=== PATIENT | male | born 1975 | race Two or more races ===

== ENCOUNTER 2025-02-01 19:49 | Emergency (ER) | payer MEDICAID, OTHER ==
[~2025-02-01] VITALS: Ht 175.3 cm; Wt 110.0 kg
[~2025-02-01 19:49] MED LIST: ASPI-325 PO; ATOR40TA52 PO; CARV3.1240 PO; IRBE150T49 PO; METF-869 PO; NIFE1TAB30 PO
--- NOTE | 2025-02-01 20:07 | ED.PDOC ---
History of Present Illness HPI Comments 49-year-old male came to ER for eye problems. Patient has been having redness and irritation of the right eye for 2 days, Was given eye drops but offered no relief. Upon arrival at the ER, blood pressure was 207/142 mmHg. Patient has been off his medications, nifedipine for over week. Denies any headaches, dizziness chest pains. Chief Complaint: Eye problems Time Seen by MD: 20:07 Reviewed Notes: Nurses Notes Allergies: Coded Allergies: No Known Drug Allergy (Verified Allergy, Unknown, 02/01/25) Information Source: Patient Mode of Arrival: Ambulatory Past Medical History PAST MEDICAL HISTORY: High Lipids, HTN Surgical History: PTCA Family History Family History: Reviewed,noncontributory to illness Social History Smoker: Cigarettes Alcohol: Denies ETOH Use Drugs: Denies Drug Use Lives In: Home Constitutional: denies: chills, diaphoresis, fatigue, fever, malaise, sweats, weakness, others EENTM: reports: eye redness (right); denies: blurred vision, double vision, ear bleeding, ear discharge, ear drainage, ear pain, ear ringing, eye pain, hearing loss, mouth pain, mouth swelling, nasal discharge, nose bleeding, nose congestion, nose pain, photophobia, tearing, throat pain, throat swelling, voice changes, others Respiratory: denies: cough, hemoptysis, orthopnea, SOB at rest, shortness of breath, SOB with excertion, stridor, wheezing, others Cardiovascular: denies: chest pain, dizzy spells, diaphoresis, Dyspnea on exertion, edema, irregular heart beat, left arm pain, lightheadedness, palpitations, PND, syncope, others Gastrointestinal: denies: abdomen distended, abdominal pain, blood streaked bowels, constipated, diarrhea, dysphagia, difficulty swallowing, hematemesis, melena, nausea, poor appetite, poor fluid intake, rectal bleeding, rectal pain, vomiting, others Genitourinary: denies: burning, dysuria, flank pain, frequency, hematuria, incontinence, penile discharge, penile sore, pain, testicle pain, testicle swelling, urgency, others Neurological: denies: dizziness, fainting, headache, left sided numbness, left sided weakness, numbness, paresthesia, pre-existing deficit, right sided numbness, right sided weakness, seizure, speech problems, tingling, tremors, weakness, others Musculoskeletal: denies: back pain, gout, joint pain, joint swelling, muscle pain, muscle stiffness, neck pain, others Integumetry: denies: bruises, change in color, change in hair/nails, dryness, laceration, lesions, lumps, rash, wounds, others Allergic/Immunocompromised: denies: Difficulty Healing, Frequent Infections, Hives, Itching, others Hematologic/Lymphatic: denies: anemia, blood clots, easy bleeding, easy bruising, swollen glands, others Endocrine: denies: excessive hunger, excessive sweating, excessive thirst, excessive urination, flushing, intolerance to cold, intolerance to heat, unexplained weight gain, unexplained weight loss, others Psychiatric: denies: anxiety, bipolar disorder, depression, hopeless, panic disorder, schizophrenia, sleepless, suicidal, others Physical Exam General Appearance: No Apparent Distress, Normal HEENT: Cornea (R) (+ pterygium, no discharge noted), Pharynx Normal, TMs Normal Neck: Full Range of Motion, Non-Tender, Normal, Normal Inspection Respiratory: Chest Non-Tender, Lungs Clear, No Accessory Muscle Use, No Resp iratory Distress, Normal Breath Sounds Cardiovascular: No Edema, No JVD, No Murmur, No Gallop, Normal Peripheral Pulses, Regular Rate/Rhythm Breast Exam: Deferred Gastrointestinal: No Organomegaly, Non Tender, No Pulsatile Mass, Normal Bowel Sounds, Soft Genitalia: Deferred Pelvic: Deferred Rectal: Deferred Extremities: No calf tenderness, Normal capillary refill, Normal inspection, Normal range of motion, Non-tender, No pedal edema Musculoskeletal : Apperance: Normal Neurologic: Alert, 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 Was a procedure done?: No Differential Dx Considerations may include: Conjunctivitis, foreign body, pterygium, hypertensive urgency, medication noncompliance X-Ray, Labs, Meds, VS Vital Signs Date Time Temp Pulse Resp B/P (MAP) Pulse Ox O2 Delivery O2 Flow Rate FiO2 02/02/25 00:32 98.4 78 20 195/144 (161) 97 98.4 02/02/25 00:32 195/144 02/01/25 23:17 98.1 87 17 210/128 (155) 98 98.1 02/01/25 23:17 210/128 02/01/25 20:09 97.7 100 18 207/142 95 97.7 Current Medications Medications (Trade) Dose Ordered Sig/Jesus Route Start Time Stop Time Status Last Admin Clonidine HCl (Catapres Tablet) 0.1 mg ONCE ONCE PO 02/01/25 20:00 02/01/25 20:01 DC 02/01/25 23:17 Time of 1ST Reevaluation: 20:02 Reevaluation 1ST: Unchanged Patient Education/Counseling: Diagnosis, Treatment Family Education/Counseling: No Family Present Comments This is a patient presents with a inflamed pterygium on the left eye. However incidentally he is also found to be hypertensive. Patient admitted that he is noncompliant with his medications and has not gotten two of them filled. In the process of treating his blood pressure patient eloped. SEPSIS Sepsis Screen Vital Signs Date Time Temp Pulse Resp B/P (MAP) Pulse Ox O2 Delivery O2 Flow Rate FiO2 02/02/25 00:32 98.4 78 20 195/144 (161) 97 98.4 02/02/25 00:32 195/144 02/01/25 23:17 98.1 87 17 210/128 (155) 98 98.1 02/01/25 23:17 210/128 02/01/25 20:09 97.7 100 18 207/142 95 97.7 Medications Medications Dose Ordered Sig/Jesus Route Start Time Stop Time Status Last Admin Dose Admin Clonidine HCl 0.1 mg ONCE ONCE PO 02/01/25 20:00 02/01/25 20:01 DC 02/01/25 23:17 Departure 1 Departure Time of Disposition: 03:13 Impression: Primary Impression: Pterygium Qualified Codes: H11.002 - Unspecified pterygium of left eye Additional Impressions: Uncontrolled hypertension Noncompliance Disposition: 07 LEFT AWOL/ELOPED Condition: Other (unknown) Critical Care Note Critical Care Time?: No Stability Stability form required: No Heart Score Heart Score: Heart Score Response (Comments) Value History N/A 0 EKG N/A 0 Age N/A 0 Risk Factors N/A 0 Troponin N/A 0 Total 0 I personally scribed for DIPTI GOMEZ MD ([email or web address]) on 02/01/25 at 20:07. Electronically submitted by Isaak Taylor ([facility]). DIPTI GOMEZ MD Feb 01, 2025 20:07
[2025-02-02 00:32] VITALS: BP 195/144; PULSE 78; RESP 20; TEMP 98.4; O2SAT 97
== END 2025-02-02 01:04 | disposition left against medical advice (07) ==
LOC: ER 19:49
DX: H11.001 Unspecified pterygium of right eye (principal); I10 Essential (primary) hypertension; F17.210 Nicotine dependence, cigarettes, uncomplicated; Z91.199 Patient's noncompliance with other medical treatment and regimen due to unspecified reason

== ENCOUNTER 2025-02-03 13:08 | Inpatient (IN) | payer MEDICAID ==
[~2025-02-03] VITALS: Ht 175.3 cm; Wt 109.0 kg
[2025-02-03] MEDS: hydrALAZINE HCL 20 MG/ML VL IV ONE (14:17)
--- NOTE | 2025-02-03 14:33 | DVH ---
EXAM: XY CHEST PORTABLE HISTORY: htn TECHNIQUE: 1 view of the chest COMPARISON: None FINDINGS/IMPRESSION: LUNGS: No pleural effusion, consolidation, or pneumothorax. MEDIASTINUM: Unremarkable. BONES: No acute osseous abnormality. OTHER: None.
--- NOTE | 2025-02-03 14:43 | DVH ---
CLINICAL INFORMATION: Hypertension. TECHNIQUE: Axial imaging was obtained through the brain without contrast. Coronal and sagittal reformatted images were obtained, reviewed, and stored. Images were reviewed in brain and bone windows. All CT scans at this medical facility are performed using dose modulation techniques as appropriate to a performed exam including the following: Automated exposure control was utilized; adjustment of the MA and/or KV according to patient size; and use of iterative reconstruction technique. CTDIvol = 62.82 mGy DLP = 1237.85 mGy-cm COMPARISON: None FINDINGS: There is no acute intracranial hemorrhage. No mass effect or midline shift. The ventricles and sulci are within normal limits in size for age. Basal cisterns are patent. Scattered areas of hypoattenuation are seen in the periventricular and subcortical white matter, which are nonspecific but most likely sequelae of small vessel ischemic disease. The calvarium is unremarkable. Retention cysts versus polyps in the maxillary sinuses. There are numerous small scalp calcifications. IMPRESSION: 1. No acute intracranial abnormality. 2. Nonacute findings as described above.
[2025-02-03 14:57] LABS: Hemoglobin 14.7 g/dL (13.5-17.5); Nucleated Red Blood Cells % 0.1 %
[2025-02-03 14:59] LABS: Hematocrit 43.9 % (41.0-53.0); Mean Corpuscular Hemoglobin 26.7 pg (28.0-32.0); Mean Corpuscular Volume 79.5 fL (80.0-100.0)
[2025-02-03 15:05] LABS: Chloride 104 mmol/L (98-107); Potassium 4.1 mmol/L (3.5-5.1); Sodium 140 mmol/L (136-145)
[2025-02-03 15:06] LABS: Anion Gap 9 (5-15); Calcium 9.5 mg/dL (8.7-10.4); Carbon Dioxide 27 mmol/L (20-31)
[2025-02-03 15:11] LABS: BUN/Creatinine Ratio 19.5 (10.0-20.0); Blood Urea Nitrogen 15 mg/dL (9-23); Glucose 141 mg/dL (74-106)
[2025-02-03 15:13] LABS: Urine Protein, UAD TRACE (Negative)
[2025-02-03] MEDS: FLUORESCEIN SOD OPTH TEST STRIP EACHEYE ONE (15:25)
[2025-02-03] MEDS: TETRACAINE HCL 0.5% OPTH(EYE) SOLN 4ML EACHEYE ONE (15:25)
--- NOTE | 2025-02-03 15:26 | ED.PDOC ---
History of Present Illness HPI Comments 49 y/o M, presents to the ED for CC of eye-problem. Patient states, he might have accidently gotten dust into his right eye x1weel ago. Patient has notable redness to the right cornea. Patient further relays to, have been seen at Urgent Care for SS and being relayed to the ED d/t high blood pressure; patient comments on being without blood pressure medication x1week. Patient denies headache, vision loss, dizziness, nausea, or vomiting. No other symptoms or modifying factors are present at this time. Chief Complaint: Eye Problem Time Seen by MD: 15:15 Reviewed Notes: Nurses Notes, Medications, Allergies Allergies: Coded Allergies: No Known Drug Allergy (Verified Allergy, Unknown, 02/01/25) Information Source: Patient Mode of Arrival: Ambulatory Severity: Moderate Timing: Weeks Duration: Since onset Prehospital treatment: None Medication Refill: Ran out of Medication Past Medical History PAST MEDICAL HISTORY: High Lipids, HTN Surgical History: PTCA Family History Family History: Reviewed,noncontributory to illness Social History Smoker: Cigarettes Alcohol: Denies ETOH Use Drugs: Denies Drug Use Lives In: Home Constitutional: denies: chills, diaphoresis, fatigue, fever, malaise, sweats, weakness, others EENTM: denies: blurred vision, double vision, ear bleeding, ear discharge, ear drainage, ear pain, ear ringing, eye pain, eye redness, hearing loss, mouth pain, mouth swelling, nasal discharge, nose bleeding, nose congestion, nose pain, photophobia, tearing, throat pain, throat swelling, voice changes, others Respiratory: denies: cough, hemoptysis, orthopnea, SOB at rest, shortness of breath, SOB with excertion, stridor, wheezing, others Cardiovascular: denies: chest pain, dizzy spells, diaphoresis, Dyspnea on exertion, edema, irregular heart beat, left arm pain, lightheadedness, palpitations, PND, syncope, others Gastrointestinal: denies: abdomen distended, abdominal pain, blood streaked bowels, constipated, diarrhea, dysphagia, difficulty swallowing, hematemesis, melena, nausea, poor appetite, poor fluid intake, rectal bleeding, rectal pain, vomiting, others Genitourinary: denies: burning, dysuria, flank pain, frequency, hematuria, incontinence, penile discharge, penile sore, pain, testicle pain, testicle swelling, urgency, others Neurological: denies: dizziness, fainting, headache, left sided numbness, left sided weakness, numbness, paresthesia, pre-existing deficit, right sided numbness, right sided weakness, seizure, speech problems, tingling, tremors, weakness, others Musculoskeletal: denies: back pain, gout, joint pain, joint swelling, muscle pain, muscle stiffness, neck pain, others Integumetry: denies: bruises, change in color, change in hair/nails, dryness, laceration, lesions, lumps, rash, wounds, others Allergic/Immunocompromised: denies: Difficulty Healing, Frequent Infections, Hives, Itching, others Hematologic/Lymphatic: denies: anemia, blood clots, easy bleeding, easy bruising, swollen glands, others Endocrine: denies: excessive hunger, excessive sweating, excessive thirst, excessive urination, flushing, intolerance to cold, intolerance to heat, unexplained weight gain, unexplained weight loss, others Psychiatric: denies: anxiety, bipolar disorder, depression, hopeless, panic disorder, schizophrenia, sleepless, suicidal, others All Other Systems: Reviewed and Negative Physical Exam General Appearance: No Apparent Distress, Normal HEENT: Normal ENT Inspection, Pharynx Normal, Other (right eye redness) Neck: Full Range of Motion, Non-Tender, Normal, Normal Inspection Respiratory: Chest Non-Tender, Lungs Clear, No Accessory Muscle Use, No Respiratory Distress, Normal Breath Sounds Cardiovascular: No Edema, No Murmur, No Gallop, Normal Peripheral Pulses, Regular Rate/Rhythm Breast Exam: Deferred Gastrointestinal: No Organomegaly, Non Tender, No Pulsatile Mass, Normal Bowel Sounds, Soft Genitalia: Deferred Pelvic: Deferred Rectal: Deferred Extremities: No calf tenderness, Normal capillary refill, Normal inspection, Normal range of motion, Non-tender, No pedal edema Musculoskeletal : Apperance: Normal Neurologic: Alert, order entry technician II-XII nml as Tested, No Motor Deficits, Normal Affect, Normal Mood, No Sensory Deficits Cerebellar Function: Normal Reflexes: Normal Skin: Dry, Normal Color, Warm Lymphatic: No Adenopathy Was a procedure done? Was a procedure done?: No Differential Dx Considerations may include: hypertensive urgency, hypertensive crisis, corneal abrasion, conjunctivitis X-Ray, Labs, Meds, VS Vital Signs Date Time Temp Pulse Resp B/P (MAP) Pulse Ox O2 Delivery O2 Flow Rate FiO2 02/03/25 15:23 98.2 102 18 183/106 (131) 100 98.2 02/03/25 15:23 103 18 100 Room Air 02/03/25 14:17 205/140 02/03/25 13:51 98.2 83 18 205/140 (161) 97 98.2 202/150 (167) 02/03/25 13:51 98.2 8 18 205/140 (161) 97 98.2 02/03/25 13:14 224/133 (163) 02/03/25 13:13 98.1 92 15 231/129 (163) 98 98.1 02/03/25 13:10 98.1 92 15 123/129 98 98.1 Lab Test 02/03/25 15:35 02/03/25 14:43 02/03/25 14:06 Range/Units Troponin I High Sensitivity Pending 644 *H </=54 ng/L White Blood Count 8.4 4.4-10.8 10^3/uL Red Blood Count 5.52 4.5-5.90 10^6/uL Hemoglobin 14.7 13.5-17.5 g/dL Hematocrit 43.9 41.0-53.0 % Mean Corpuscular Volume 79.5 L 80.0-100.0 fL Mean Corpuscular Hemoglobin 26.7 L 28.0-32.0 pg Mean Corpuscular Hemoglobin Concent 33.6 32.0-36.0 g/dL Red Cell Distribution Width 15.6 H 11.8-14.3 % Platelet Count 218 140-450 10^3/uL Mean Platelet Volume 9.1 6.9-10.8 fL Neutrophils (%) (Auto) 59.0 37.0-80.0 % Lymphocytes (%) (Auto) 26.1 10.0-50.0 % Monocytes (%) (Auto) 9.3 0.0-12.0 % Eosinophils (%) (Auto) 5.2 0.0-7.0 % Basophils (%) (Auto) 0.4 0.0-2.0 % Neutrophils # (Auto) 5.0 1.6-8.6 10 ^3/uL Lymphocytes # (Auto) 2.2 0.4-5.4 10 ^3/uL Monocytes # (Auto) 0.8 0-1.3 10 ^3/uL Eosinophils # (Auto) 0.4 0-0.8 10 ^3/uL Basophils # (Auto) 0 0-0.2 10 ^3/uL Nucleated Red Blood Cells 0.1 % Sodium Level 140 136-145 mmol/L Potassium Level 4.1 3.5-5.1 mmol/L Chloride Level 104 98-107 mmol/L Carbon Dioxide Level 27 20-31 mmol/L Anion Gap 9 5-15 Blood Urea Nitrogen 15 9-23 mg/dL Creatinine 0.77 0.700-1.30 mg/dL Glomerular Filtration Rate Calc 111 >90 mL/min BUN/Creatinine Ratio 19.5 10.0-20.0 Serum Glucose 141 H 74-106 mg/dL Calcium Level 9.5 8.7-10.4 mg/dL B-Type Natriuretic Peptide 95.37 0-100 pg/mL Urine Color Light-orange Yellow Urine Clarity Clear Clear Urine pH 6.0 5.0-9.0 Urine Specific Effie 1.028 1.001-1.035 Urine Protein Trace H Negative Urine Ketones Negative Negative Urine Blood Negative Negative /uL Urine Nitrite Negative Negative Urine Bilirubin Negative Negative Urine Urobilinogen Normal Negative mg/dL Urine Leukocyte Esterase Negative Negative /uL Urine RBC 1 0 - 3 /hpf Urine Microscopic WBC < 1 0-3 /HPF Urine Squamous Epithelial Cells Few <5 /hpf Urine Bacteria None seen None Seen /hpf Urine Glucose Trace Normal mg/dL Current Medications Medications (Trade) Dose Ordered Sig/Jesus Route Start Time Stop Time Status Last Admin Hydralazine HCl (Apresoline Injection) 20 mg ONCE ONCE IV 02/03/25 14:00 02/03/25 14:05 DC 02/03/25 14:[address] [address] Ph: [phone] DIAGNOSTIC IMAGING Diagnostic Imaging Report : [id number] Signed PATIENT: MICHAELA QUEEN ACCT: [id number] UNIT: [id number] : 1975 LOC: ER ROOM / BED: / AGE / SEX: 49 / M ADM STATUS: REG ER SERVICE 1400 ORDERING PHYSICIAN: FOZIA WEST MD PROCEDURE(s): CXRP - CHEST PORTABLE REASON: htn ORDER NUMBER(s): [id number], ACCESSION NUMBER(s): [id number] EXAM: XY CHEST PORTABLE HISTORY: htn TECHNIQUE: 1 view of the chest COMPARISON: None FINDINGS/IMPRESSION: LUNGS: No pleural effusion, consolidation, or pneumothorax. MEDIASTINUM: Unremarkable. BONES: No acute osseous abnormality. OTHER: None. ATED BY: TRINIDAD OG MD DICTATED DATE/TIME: 02/03/251429 SIGNED BY: TRINIDAD OG MD SIGNED DATE/TIME: 02/03/251429 CC: [place] [id number] Ph: [phone] DIAGNOSTIC IMAGING Diagnostic Imaging Report : [id number] Signed PATIENT: MICHAELA QUEEN ACCT: [id number] UNIT: [id number] : 1975 LOC: ER ROOM / BED: / AGE / SEX: 49 / M ADM STATUS: REG ER SERVICE 1400 ORDERING PHYSICIAN: FOZIA WEST MD PROCEDURE(s): HWOCT - HEAD WITHOUT CONTRAST REASON: htn ORDER NUMBER(s): [id number], ACCESSION NUMBER(s): [id number] CLINICAL INFORMATION: Hypertension. TECHNIQUE: Axial imaging was obtained through the brain without contrast. Coronal and sagittal reformatted images were obtained, reviewed, and stored. Images were reviewed in brain and bone windows. All CT scans at this medical facility are performed using dose modulation techniques as appropriate to a performed exam including the following: Automated exposure control was utilized; adjustment of the MA and/or KV according to patient size; and use of iterative reconstruction technique. CTDIvol = 62.82 mGy DLP = 1237.85 mGy-cm COMPARISON: None FINDINGS: There is no acute intracranial hemorrhage. No mass effect or midline shift. The ventricles and sulci are within normal limits in size for age. Basal cisterns are patent. Scattered areas of hypoattenuation are seen in the periventricular and subcortical white matter, which are nonspecific but most likely sequelae of small vessel ischemic disease. The calvarium is unremarkable. Retention cysts versus polyps in the maxillary sinuses. There are numerous small scalp calcifications. IMPRESSION: 1. No acute intracranial abnormality. 2. Nonacute findings as described above. ATED BY: JOZEF SEWELL DO DICTATED DATE/TIME: 02/03/251440 SIGNED BY: JOZEF SEWELL DO SIGNED DATE/TIME: 02/03/251440 CC: Time of 1ST Reevaluation: 15:45 Reevaluation 1ST: Unchanged Patient Education/Counseling: Diagnosis, Treatment Family Education/Counseling: No Family Present SEPSIS Sepsis Screen Date sepsis recognized/suspect: Feb 03, 2025 Time Sepsis recognized/suspect: 135 Recent Procedure: No On Antibiotic Therapy: No Respiratory Rate >20: No Heart Rate >90: No Temp<36 C (96.8 F) or >38.3 C: No SBP <90 or MAP <65 mmHG: No New Acute Mental Status Change: No Is the patient on CPAP, BIPAP,: No Physician Orders Chest Portable (02/03/25 14:00) Head Without Contrast (02/03/25 14:00) Electrocardigram (02/03/25 14:00) Troponin-I Hs (02/03/25 15:00) Troponin-I Hs (02/03/25 17:00) Electrocardigram (02/03/25 15:00) Electrocardigram (02/03/25 17:00) Erythromy Opth Oint 5mg/Gm 1gm (02/03/25 16:00) Labetalol Hcl (Labetalol Hcl) (02/03/25 16:00) Vital Signs Date Time Temp Pulse Resp B/P (MAP) Pulse Ox O2 Delivery O2 Flow Rate FiO2 02/03/25 15:23 98.2 102 18 183/106 (131) 100 98.2 02/03/25 15:23 103 18 100 Room Air 02/03/25 14:17 205/140 02/03/25 13:51 98.2 83 18 205/140 (161) 97 98.2 202/150 (167) 02/03/25 13:51 98.2 8 18 205/140 (161) 97 98.2 02/03/25 13:14 224/133 (163) 02/03/25 13:13 98.1 92 15 231/129 (163) 98 98.1 02/03/25 13:10 98.1 92 15 123/129 98 98.1 Laboratory Tests Test 02/03/25 14:43 White Blood Count 8.4 10^3/uL (4.4-10.8) Medications Medications Dose Ordered Sig/Jesus Route Start Time Stop Time Status Last Admin Dose Admin Hydralazine HCl 20 mg ONCE ONCE IV 02/03/25 14:00 02/03/25 14:05 DC 02/03/25 14:17 Departure 1 Departure Time of Disposition: 15:57 (Patient with a corneal abrasion of the right eye. Patient had some debris that I cleaned out. We will give the patient erythromycin ointment.Patient presented with hypertension and symptoms concerning for hypertensive emergency. Patient is receiving iv blood pressure medications requiring intensive monitoring. Data: 1. I ordered and reviewed the result of at least 3 labs including a CBC, BMP, and Urinalysis. 2. I independently interpreted the following tests: CT Brain: Which appears benign. EKG which is Normal Sinus RhythmRisk:This patient has a high risk of morbidity due to further diagnostic testing or treatment and may suffer from an acute c ardiac disorder. Workup reveals hypertensive emergency and patient should be admitted for further workup. and possible expert consultation. ) Impression: Primary Impression: Hypertensive emergency Additional Impression: Corneal abrasion Disposition: ADMITTED INPATIENT Admit to: Tele Condition: Guarded Critical Care Note Critical Care Time?: Yes Critical care comment: Hypertensive emergency Authorized and Performed by: Fozia West MD Total critical care time: Approximately 38 minutes Due to a high probability of clinically significant, life threatening deterioration, the patient required my highest level of preparedness to intervene emergently and I personally spent this critical care time directly and personally managing the patient. This critical care time included obtaining a history; examining the patient; pulse oximetry; ordering and review of studies; arranging urgent treatment with development of a management plan; evaluation of patient's response to treatment; frequent reassessment; and, discussions with other providers. This critical care time was performed to assess and manage the high probability of imminent, life-threatening deterioration that could result in multi-organ failure. It was exclusive of separately billable procedures and treating other patients and teaching time. Please see my other sections and the rest of the note for further information on patient assessment and treatment. Stability Stability form required: No Heart Score Heart Score: Heart Score Response (Comments) Value History N/A 0 EKG N/A 0 Age N/A 0 Risk Factors N/A 0 Troponin N/A 0 Total 0 I personally scribed for FOZIA WEST MD ([email or web address]) on 02/03/25 at 15:26. Electronically submitted by Suki Rouse ([email or web address]). I personally scribed for FOZIA WEST MD ([email or web address]) on 02/03/25 at 15:30. Electronically submitted by Suki Rouse ([email or web address]). FOZIA WEST MD Feb 03, 2025 15:26
[2025-02-03] MEDS ORDERED: MORPHINE SULFATE INJ 2 MG/ml SYRG IV PRN (16:45)
[2025-02-03] MEDS ORDERED: NITROGLYCERIN 0.4 MG SL TAB SL PRN (16:45)
[2025-02-03] MEDS: TOBRAMYCIN SULF 0.3% OPTH(EYE) OINT 3.5GM RIGHTEYE SCH (16:45)
[2025-02-03] MEDS: OPHTHALMIC IRRIGATION SOLN 30ML RIGHTEYE ONE (16:45)
[2025-02-03] MEDS ORDERED: ACETAMINOPHEN 325 MG TAB PO PRN (16:45)
[2025-02-03] MEDS ORDERED: DEXTROSE (50%) 50ML SYRG IV PRN (16:45)
[2025-02-03 17:00] VITALS: PULSE 89; RESP 16; O2SAT 99
[2025-02-03] MEDS: ERYTHROMY OPTH OINT 5mg/gm 1gm or 3.5gm tube OP ONE (17:02)
[2025-02-03] MEDS: LABETALOL HCL 20 MG/4 ML VL IV ONE (17:03)
--- NOTE | 2025-02-03 17:59 | DVHHP2 ---
History of Present Illness History of Present Illness This is a 49-year-old male with past medical history of diabetes, hypertension, hyperlipidemia, and coronary artery disease s/p PTCA who presents after being found with markedly elevated blood pressure. He reports that about a week ago he got dust in his right eye and since then has had persistent redness and blurry vision; ED exam with fluorescein confirmed a corneal abrasion. He denies headache, photophobia, chest pain, or shortness of breath. On arrival his BP was 231/129 and HR 103; he received IV labetalol and hydralazine with improvement to 160/97 and HR 76. He is currently stable on room air at 100%. Past Medical History: Diabetes mellitus, hypertension, hyperlipidemia, coronary artery disease s/p stent. Past Surgical History: PTCA. Home Medications: Metformin, carvedilol 3.125 mg, irbesartan 150 mg, atorvastatin 40 mg, aspirin 81 mg, nifedipine ER 60 mg. Allergies: No known allergies. Social History: Active smoker. Denies alcohol and other drug use. Lives at home. Review of Systems Review of Systems Blurry vision in right eye. No photophobia, headache, chest pain, shortness of breath, fever, chills, abdominal pain, dysuria, weakness, or other complaints. Allergies: Coded Allergies: No Known Drug Allergy (Verified Allergy, Unknown, 02/01/25) Medications Current Medications Medications Dose Ordered Sig/Jesus Route Start Time Stop Time Status Last Admin Dose Admin Acetaminophen 650 mg Q6HP PRN PO 02/03/25 16:45 Enoxaparin Sodium 40 mg DAILY SC 02/04/25 10:00 Nitroglycerin 0.4 mg Q5MINP PRN SL 02/03/25 16:45 Morphine Sulfate 2 mg Q30M PRN IV 02/03/25 16:45 Nifedipine 90 mg DAILY PO 02/03/25 16:45 Losartan Potassium 100 mg DAILY PO 02/03/25 16:45 Carvedilol 3.125 mg Q12HR PO 02/03/25 22:00 Aspirin 81 mg DAILY PO 02/03/25 16:45 Tobramycin Sulfate 1 applic TID RIGHTEYE 02/03/25 16:45 Diagnostic Test (Pha) 1 strip ACHS 02/03/25 17:00 Insulin Human Regular ACHS SC 02/03/25 17:00 Dextrose 50 ml UD PRN IV 02/03/25 16:45 Exam Vital Signs Vital Signs Date Time Temp Pulse Resp B/P (MAP) Pulse Ox O2 Delivery O2 Flow Rate FiO2 02/03/25 17:18 76 02/03/25 17:03 183/97 02/03/25 15:23 98.2 18 100 98.2 02/03/25 15:23 Room Air Exam General: Awake, alert, overweight, in no acute distress. HEENT: Right eye with conjunctival erythema and corneal abrasion noted; no discharge; EOMI. Neck: Supple. Heart: Regular rate and rhythm, no murmurs. Lungs: Clear to auscultation bilaterally. Abdomen: Soft, nontender, nondistended. Extremities: No edema. Neuro: A&Ox3, no focal deficits. Labs/Xrays Labs Test 02/03/25 15:35 02/03/25 14:43 02/03/25 14:06 Range/Units Troponin I High Sensitivity 715 *H </=54 ng/L White Blood Count 8.4 4.4-10.8 10^3/uL Red Blood Count 5.52 4.5-5.90 10^6/uL Hemoglobin 14.7 13.5-17.5 g/dL Hematocrit 43.9 41.0-53.0 % Mean Corpuscular Volume 79.5 L 80.0-100.0 fL Mean Corpuscular Hemoglobin 26.7 L 28.0-32.0 pg Mean Corpuscular Hemoglobin Concent 33.6 32.0-36.0 g/dL Red Cell Distribution Width 15.6 H 11.8-14.3 % Platelet Count 218 140-450 10^3/uL Mean Platelet Volume 9.1 6.9-10.8 fL Neutrophils (%) (Auto) 59.0 37.0-80.0 % Lymphocytes (%) (Auto) 26.1 10.0-50.0 % Monocytes (%) (Auto) 9.3 0.0-12.0 % Eosinophils (%) (Auto) 5.2 0.0-7.0 % Basophils (%) (Auto) 0.4 0.0-2.0 % Neutrophils # (Auto) 5.0 1.6-8.6 10 ^3/uL Lymphocytes # (Auto) 2.2 0.4-5.4 10 ^3/uL Monocytes # (Auto) 0.8 0-1.3 10 ^3/uL Eosinophils # (Auto) 0.4 0-0.8 10 ^3/uL Basophils # (Auto) 0 0-0.2 10 ^3/uL Nucleated Red Blood Cells 0.1 % Sodium Level 140 136-145 mmol/L Potassium Level 4.1 3.5-5.1 mmol/L Chloride Level 104 98-107 mmol/L Carbon Dioxide Level 27 20-31 mmol/L Anion Gap 9 5-15 Blood Urea Nitrogen 15 9-23 mg/dL Creatinine 0.77 0.700-1.30 mg/dL Glomerular Filtration Rate Calc 111 >90 mL/min BUN/Creatinine Ratio 19.5 10.0-20.0 Serum Glucose 141 H 74-106 mg/dL Hemoglobin A1c 7.1 H <5.7 % A1C Calcium Level 9.5 8.7-10.4 mg/dL B-Type Natriuretic Peptide 95.37 0-100 pg/mL Urine Color Light-orange Yellow Urine Clarity Clear Clear Urine pH 6.0 5.0-9.0 Urine Specific [place] 1.028 1.001-1.035 Urine Protein Trace H Negative Urine Ketones Negative Negative Urine Blood Negative Negative /uL Urine Nitrite Negative Negative Urine Bilirubin Negative Negative Urine Urobilinogen Normal Negative mg/dL Urine Leukocyte Esterase Negative Negative /uL Urine RBC 1 0 - 3 /hpf Urine Microscopic WBC < 1 0-3 /HPF Urine Squamous Epithelial Cells Few <5 /hpf Urine Bacteria None seen None Seen /hpf Urine Glucose Trace Normal mg/dL SEPSIS Sepsis Screen Date sepsis recognized/suspect: Feb 03, 2025 Time Sepsis recognized/suspect: 1351 Recent Procedure: No On Antibiotic Therapy: No Respiratory Rate >20: No Heart Rate >90: No Temp<36 C (96.8 F) or >38.3 C: No SBP <90 or MAP <65 mmHG: No New Acute Mental Status Change: No Is the patient on CPAP, BIPAP,: No Physician Orders Chest Portable (02/03/25 14:00) Head Without Contrast (02/03/25 14:00) Electrocardigram (02/03/25 14:00) Troponin-I Hs (02/03/25 17:00) Electrocardigram (02/03/25 15:00) Electrocardigram (02/03/25 17:00) Admit (02/03/25 16:36) Code Status (02/03/25 16:36) Vital Signs .PER UNIT PROTOCOL (02/03/25 16:36) Review Orders With Adm.Md (02/03/25 16:36) Consistent Carb(Ccho)Diabetes (02/03/25 Dinner) Acetaminophen Tablet (Tylenol Tablet) (02/03/25 16:45) Notify Md Of Changes From Base (02/03/25 16:36) Advance Directive (02/03/25 16:36) Echo 2d Mode Cardiac Dop (02/03/25 16:36) Patient Condition (02/03/25 16:36) Allergies (02/03/25 16:36) Drug Screen (02/03/25 16:36) Enoxaparin Sodium (Lovenox) (02/04/25 10:00) Nitroglycerin Sublingual (Ntrostat Subli (02/03/25 16:45) Morphine Sulfate Injection (02/03/25 16:45) Oxygen By Nasal Cannula (02/03/25 16:36) Stat Ekg For Chest Pain (02/03/25 16:36) Notify Md Of Changes From Base (02/03/25 16:36) Services Program Manager For 24 Hours (02/03/25 16:36) Emergency Dysrhythmia Protocol (02/03/25 16:36) Rhythm Strips Once Every Shift (02/03/25 16:36) Nifedipine Er (Procardia Xl (Time-Releas (02/03/25 16:45) Losartan Tablet (Cozaar Tablet) (02/03/25 16:45) Carvedilol Tablet (Coreg Tablet) (02/03/25 22:00) Aspirin Chewable Tablet (02/03/25 16:45) Tobramycin Opth Oint (Tobrex Opth Oint) (02/03/25 16:45) Glucose Blood (Accu-Chek Comfort Curve T (02/03/25 17:00) Insulin R (Human) (Insulin R) (02/03/25 17:00) Dextrose 50% Syringe (02/03/25 16:45) Troponin-I Hs (02/03/25 17:58) Vital Signs Date Time Temp Pulse Resp B/P (MAP) Pulse Ox O2 Delivery O2 Flow Rate FiO2 02/03/25 17:18 76 02/03/25 17:03 89 183/97 02/03/25 15:23 98.2 102 18 183/106 (131) 100 98.2 02/03/25 15:23 103 18 100 Room Air 02/03/25 14:17 205/140 02/03/25 13:51 98.2 83 18 205/140 (161) 97 98.2 202/150 (167) 02/03/25 13:51 98.2 8 18 205/140 (161) 97 98.2 02/03/25 13:14 224/133 (163) 02/03/25 13:13 98.1 92 15 231/129 (163) 98 98.1 02/03/25 13:10 98.1 92 15 123/129 98 98.1 Laboratory Tests Test 02/03/25 14:43 White Blood Count 8.4 10^3/uL (4.4-10.8) Medications Medications Dose Ordered Sig/Jesus Route Start Time Stop Time Status Last Admin Dose Admin Erythromycin 1 applic ONCE ONCE OP 02/03/25 16:00 02/03/25 16:06 DC 02/03/25 17:02 1 APPLIC Hydralazine HCl 20 mg ONCE ONCE IV 02/03/25 14:00 02/03/25 14:05 DC 02/03/25 14:17 20 MG Labetalol HCl 20 mg ONCE ONCE IV 02/03/25 16:00 02/03/25 16:06 DC 02/03/25 17:03 20 MG Assessment/Plan Assessment/Plan # Hypertensive emergency The patient presented with severe uncontrolled hypertension with initial BP 231/129 and evidence of end-organ involvement given visual disturbance. He improved after IV antihypertensives but remains above goal and requires inpatient titration. Continue nifedipine, losartan, and carvedilol; monitor BP closely; repeat labs; follow trend; echocardiogram ordered; cardiology consult in the morning. # NSTEMI type 1 vs type 2 He has significantly elevated troponins (954- 067-third pending) with a non- ischemic EKG and no chest pain, making both plaque-mediated ischemia and demand-related injury possible in the setting of severe hypertension. His cardiovascular risk profile remains high and requires full evaluation. Trend troponins to completion; obtain echocardiogram; continue aspirin, statin, and carvedilol; maintain BP control; cardiology evaluation in the morning; NPO after midnight in case invasive evaluation is required. # Coronary artery disease History of PTCA with multiple cardiac risk factors and poor BP control. No active chest pain at this time. Continue aspirin and statin; continue carvedilol; follow cardiology recommendations. # Type 2 diabetes mellitus He requires inpatient glycemic management during this acute episode. Glucose control will help limit further cardiac stress. Start sliding scale insulin; hold metformin for now; monitor glucose AC/HS. # Corneal abrasion, right eye Fluorescein exam confirmed abrasion related to dust exposure one week ago. No signs of infection and no photophobia. Continue tobramycin drops and irrigation; ophthalmology follow-up next week. # Tobacco use Active smoker with significant cardiovascular burden. Cessation is strongly recommended. Offer nicotine replacement and counseling. Case discussed with Dr Shepherd Full code Plan discussed with: Patient, Other (rn) My Orders Orders - ARMANDO [place] RESIDENT Procedure Category Date Status Time Admit ADMIT 02/03/25 Transmitted 16:36 Code Status CODE 02/03/25 Transmitted 16:36 Vital Signs [facility] 02/03/25 In Process 16:36 Review Orders With [facility] 02/03/25 In Process Adm. 16:36 Consistent DIET 02/03/25 Transmitted Carb(Ccho)Diabetes Dinner Acetaminophen Tablet PHA 02/03/25 In Process (Tylenol Tablet) 16:45 Notify Of Changes [facility] 02/03/25 In Process From Base 16:36 Advance Directive [place] 02/03/25 In Process 16:36 Echo 2d Mode Cardiac US 02/03/25 Logged DOP 16:36 Patient Condition ORDERS 02/03/25 Transmitted 16:36 Allergies [place] 02/03/25 In Process 16:36 Drug Screen LAB 02/03/25 In Process 16:36 Enoxaparin Sodium PHA 02/04/25 In Process (Lovenox) 10:00 Nitroglycerin PHA 02/03/25 In Process Sublingual (Ntrostat 16:45 Morphine Sulfate PHA 02/03/25 In Process Injection 16:45 Oxygen By Nasal RT 02/03/25 Transmitted Cannula 16:36 Stat Ekg For Chest [place] 02/03/25 In Process Pain 16:36 Notify Of Changes [facility] 02/03/25 In Process From Base 16:36 Services Program Manager For [facility] 02/03/25 In Process 24 Hours 16:36 Emergency Dysrhythmia [facility] 02/03/25 In Process Protocol 16:36 Rhythm Strips Once [place] 02/03/25 In Process Every Shift 16:36 Nifedipine Er PHA 02/03/25 In Process (Procardia Xl 16:45 Losartan Tablet PHA 02/03/25 In Process (Cozaar Tablet) 16:45 Carvedilol Tablet PHA 02/03/25 In Process (Coreg Tablet) 22:00 Aspirin Chewable PHA 02/03/25 In Process Tablet 16:45 Tobramycin Opth Oint PHA 02/03/25 In Process (Tobrex Opth Oint) 16:45 Glucose Blood PHA 02/03/25 In Process (Accu-Chek Comfort 17:00 Insulin R (Human) PHA 02/03/25 In Process (Insulin R) 17:00 Dextrose 50% Syringe PHA 02/03/25 In Process 16:45 Troponin-I Hs LAB 02/03/25 Verified 17:58 Date of Service: Feb 03, 2025 Billing Provider: ASHOK SHEPHERD MD Common Visit Codes: [id number] INP/OBS CARE(HIGH) Secondary Visit Codes: [id number] CARE PLAN 30 MINUTES ARMANDO [place] RESIDENT Feb 03, 2025 17:59
[2025-02-03] MEDS: LOSARTAN POTASSIUM 50 MG TAB PO SCH (18:01)
[2025-02-03] MEDS: ACCU-CHEK COMFORT CURVE STRIP VI SCH (18:02)
[2025-02-03] MEDS: InsuLIN REG 1unit/0.01ml Soln (100units/ml) SC SCH (18:03)
[2025-02-03 18:16] LABS: Amphetamine Screen, Urine Neg (NEGATIVE)
[2025-02-03 18:31] LABS: Barbiturate Scree,Urine Neg (NEGATIVE); Benzodiazephine Screen, Urine Neg (NEGATIVE); Cannabinoid Screen, Urine Neg (NEGATIVE); Cocaine Screen, Urine Neg (NEGATIVE); Opiate Scree,Urine Neg (NEGATIVE); Phencyclidine Screen, Urine Neg (NEGATIVE)
[2025-02-03] MEDS ORDERED: HEPARIN DRIP/D5W 100UNITS/ML 250 ML IV SCH (19:15)
[2025-02-03] MEDS ORDERED: HEPARIN SODIUM (PORCINE) 5000 UNITS/ML 1ML VIAL IV ONE (19:15)
[2025-02-03 19:35] VITALS: PULSE 84; RESP 16; O2SAT 98
[2025-02-03 19:44] LABS: INR 1.03 (0.9-1.15); Partial Thromboplastin Time 29.7 SEC (24.5-34.5); Prothrombin Time 10.9 sec (9.3-11.8)
[2025-02-03] MEDS: CARVEDILOL 3.125 MG TAB PO SCH (22:34)
[2025-02-03] MEDS: ATORVASTATIN 20 MG TAB PO SCH (22:34)
[2025-02-04 00:40] VITALS: BP 131/69; PULSE 85; RESP 18; TEMP 98.6
[2025-02-04 01:00] VITALS: BP 148/74; PULSE 93; RESP 18; TEMP 98.6; O2SAT 92
[2025-02-04 03:30] LABS: Hematocrit 42.9 % (41.0-53.0); Hemoglobin 14.4 g/dL (13.5-17.5); Mean Corpuscular Hemoglobin 26.8 pg (28.0-32.0); Mean Corpuscular Volume 79.9 fL (80.0-100.0); Nucleated Red Blood Cells % 0.1 %
[2025-02-04 04:15] LABS: Albumin 4.1 g/dL (3.2-4.8); Alkaline Phosphatase 110 U/L (46-116); Anion Gap 9 (5-15); BUN/Creatinine Ratio 13.9 (10.0-20.0); Bilirubin, Total 0.7 mg/dL (0.2-1.0); Blood Urea Nitrogen 11 mg/dL (9-23); Calcium 9.1 mg/dL (8.7-10.4); Carbon Dioxide 27 mmol/L (20-31); Chloride 103 mmol/L (98-107); Potassium 4.1 mmol/L (3.5-5.1); Sodium 139 mmol/L (136-145); Total Protein 8.0 g/dL (5.7-8.2)
[2025-02-04 04:21] LABS: Alanine Aminotransferase 50 U/L (7-40); Glucose 121 mg/dL (74-106)
[2025-02-04 04:32] LABS: Triglycerides 141 mg/dL (< 150)
[2025-02-04 04:34] LABS: Cholesterol 193 mg/dL (< 200); HDL Cholesterol 41 mg/dL (40-59)
[2025-02-04 05:00] VITALS: BP 134/84; PULSE 87; RESP 18; TEMP 98.6; O2SAT 99
[2025-02-04 08:00] VITALS: TEMP 98.4
--- NOTE | 2025-02-04 09:18 | ECG ---
[facility] Test Date: 2025-02-03 Test Time: 17:18:18 Pat Name: MICHAELA QUEEN Department: [facility] ED Room: [address] [place] [address] Gender: M Single Stayer Operator: LISA : 1975 Requested By: FOZIA WEST Order Number: [id number] Reading MD: Seth King Measurements Intervals [place] Rate: 76 P: 46 WI: 166 QRS: 7 QRSD: 93 T: 158 QT: 417 QTc: 469 Interpretive Statements Sinus rhythm Left atrial enlargement LVH with secondary repolarization abnormality Anterior ST elevation, probably due to LVH Electronically Signed On 02-07-2025 19:14:26 PST by Seth King Please click the below link to view image of tracing.
[2025-02-04] MEDS: ENOXAPARIN SOD 40 MG/0.4 ML SYRINGE SC SCH (10:39)
--- NOTE | 2025-02-04 11:55 | DVHINCON2 ---
REESSID ROMANOY [facility] 02/04/25 1155: Date Seen: Feb 04, 2025 Referring Physician MD Sebas Reason for Consultation NSTEMI with hypertensive urgency and hx of CAD with stents History of Present Illness This is a pleasant 49-year-old man who [facility]. Per patient, he attended a local urgent care clinic for a chief complaint of right eye redness when he was found to be hypertensive and referred to the nearest emergency room. Upon arrival to the emergency room he was found with a systolic blood pressure up to the 230s mmHg for which he was medicated with hydralazine and labetalol IV. At time of assessment, the patient was found with a SBP in the 120s mmHg. States he ran out of Nifedipine 60 mg qd, irbesartan 150 mg qd, ASA 81 mg qd, and atorvastatin 40 mg approximately a week ago. He has only continue Coreg 3.125 mg for BP control. Denies chest pain, palpitations, diaphoresis, SOB, or dizziness. Denies following up in the outpatient setting with a primary grease rack worker. Significant medical history includes coronary artery disease status post PTCA with stent placement x2 FARHAT at [facility] in 2021 (on ASA but run out a week ago), hypertension, dyslipidemia, [id number] diabetes mellitus, obesity, and occasional e-cigarette use. Past Medical History Past medical history reviewed. No other significant than mentioned above. Past Surgical History PTCA with stent placement x2 FARHAT, 2021 Family History: Hypertension G8 MOTHER Family History Family history reviewed. Social History Denies the use of illicit drugs, alcohol, or tobacco use. Admits to E-cigarette use on occasional basis. Allergies: Coded Allergies: No Known Drug Allergy (Verified Allergy, Unknown, 02/01/25) Home Meds Active Scripts Aspirin (Aspirin Low Dose) 81 Mg Tab, 81 MG PO DAILY for 180 Days, #180 TAB Prov:BILL REES [facility] 02/04/25 Atorvastatin Calcium (ATORVASTATIN CALCIUM) 20 Mg Tab, 80 MG PO HS for 90 Days, #90 TAB Prov:BILL REES [facility] 02/04/25 Erythromycin (Erythromycin) 5 Mg/Gm Oin, 1 MG OP QID for 14 Days, #1 OIN Prov:CRISTAL WASSERMAN MD 02/04/25 Nifedipine (Nifedipine Er) 60 Mg Tab, 1 TAB PO DAILY for 30 Days, #30 TAB Prov:CRISTAL WASSERMAN MD 02/04/25 Irbesartan (IRBESARTAN) 150 Mg Tab, 1 TAB PO DAILY for 30 Days, #30 TAB Prov:CRISTAL WASSERMAN MD 02/04/25 Carvedilol (Carvedilol) 3.125 Mg Tab, 1 TAB PO BID for 30 Days, #60 TAB Prov:CRISTAL WASSERMAN MD 02/04/25 Reported Medications Aspirin (Aspirin Low Dose) 81 Mg Tab, 1 TAB PO DAILY for 30 Days, #30 02/04/25 Atorvastatin Calcium (ATORVASTATIN CALCIUM) 40 Mg Tab, 1 TAB PO DAILY for 30 Days, #30 02/04/25 Metformin Hydrochloride (Metformin Hydrochloride) 500 Mg Tab, 1 TAB PO BID for 30 Days, #60 02/04/25 Home Meds Home medications reviewed. Current Medications Current Medications Medications (Trade) Dose Ordered Sig/Jesus Route PRN Reason Start Time Stop Time Status Last Admin Acetaminophen (Tylenol Tablet) 650 mg Q6HP PRN PO PAIN SCALE 1-3 OR TEMP>100.4 02/03/25 16:45 Enoxaparin Sodium (Lovenox) 40 mg DAILY SC 02/04/25 10:00 02/04/25 10:39 Nitroglycerin (Ntrostat Sublingual) 0.4 mg Q5MINP PRN SL FOR CHEST PAIN 02/03/25 16:45 Morphine Sulfate 2 mg Q30M PRN IV FOR CHEST PAIN 02/03/25 16:45 Nifedipine (Procardia Xl (Time-Release)) 90 mg DAILY PO 02/03/25 16:45 02/04/25 10:40 Losartan Potassium (Cozaar Tablet) 100 mg DAILY PO 02/03/25 16:45 02/04/25 10:40 Carvedilol (Coreg Tablet) 3.125 mg Q12HR PO 02/03/25 22:00 02/04/25 10:41 Aspirin 81 mg DAILY PO 02/03/25 16:45 02/04/25 10:41 Tobramycin Sulfate (Tobrex Opth Oint) 1 applic TID RIGHTEYE 02/03/25 16:45 Diagnostic Test (Pha) (Accu-Chek Comfort Curve T) 1 strip ACHS 02/03/25 17:00 02/04/25 06:15 Insulin Human Regular (InsuLIN R) ACHS SC 02/03/25 17:00 02/03/25 22:29 Dextrose 50 ml UD PRN IV Blood Sugar LESS THAN 60 02/03/25 16:45 Atorvastatin Calcium (Lipitor) 80 mg HS PO 02/03/25 22:00 02/03/25 22:34 Heparin Sodium/ Dextrose 250 ml @ 13.248 mls/ hr [id number] IV 02/03/25 19:15 02/03/25 19:18 DC Review of Systems Constitutional: No symptom reported Ears, Nose, & Throat: Right eye redness Eyes: No symptom reported Neurological: No symptoms reported Pulmonary/Respiratory: No symptom reported Cardiovascular: No symptom reported Gastrointestinal: No symptom reported Genitourinary: No symptom reported Musculoskeletal: No symptom reported Skin: No symptom reported Psychiatric: No symptom reported Endocrine: No symptom reported Hemotologic/Lymphatic: No symptom reported Vital Signs Vital Signs Date Time Temp Pulse Resp B/P (MAP) Pulse Ox O2 Delivery O2 Flow Rate FiO2 02/04/25 10:41 76 134/56 02/04/25 10:00 13 99 02/04/25 08:00 Room Air* 0 21 02/04/25 08:00 98.4 98.4 Physical Exam General Appearance: Cooperative. Well developed. Obese. In no acute distress Head Exam: Normal inspection Neck Exam: Normal inspection. Non-tender. Normal alignment Pulmonary/Respiratory: Chest non-tender. Clear bilateral breath sounds Cardiovascular/Chest: Regular rate and rhythm. S1, S2. Sinus rhythm with T- wave inversion to lateral leads, suggestive of LVH. Peripheral Pulses: 2+ Radial (R). 2+ Radial (L). 2+ Pedal (R). 2+ Pedal (L) Abdominal Exam: Normal bowel sounds. Soft. Ankle Exam: Negative ankle edema Lower extremities: Negative lower extremity edema Neuro/Mental Status: A&O x4. Coherent Thoughts/Psych: Normal thought pattern. Appropriate mood and affect. Good judgement and insight Appearance: In no acute distress Skin Exam: Normal inspection. Normal color. Warm. Dry Labs/Diagnostic Data Labs Test 02/04/25 06:10 02/04/25 02:41 02/03/25 18:11 02/03/25 14:43 Range/Units POC Glucose 154 H 70-106 mg/dl White Blood Count 8.4 4.4-10.8 10^3/uL Red Blood Count 5.36 4.5-5.90 10^6/uL Hemoglobin 14.4 13.5-17.5 g/dL Hematocrit 42.9 41.0-53.0 % Mean Corpuscular Volume 79.9 L 80.0-100.0 fL Mean Corpuscular Hemoglobin 26.8 L 28.0-32.0 pg Mean Corpuscular Hemoglobin Concent 33.5 32.0-36.0 g/dL Red Cell Distribution Width 15.3 H 11.8-14.3 % Platelet Count 209 140-450 10^3/uL Mean Platelet Volume 9.4 6.9-10.8 fL Neutrophils (%) (Auto) 63.4 37.0-80.0 % Lymphocytes (%) (Auto) 23.1 10.0-50.0 % Monocytes (%) (Auto) 8.1 0.0-12.0 % Eosinophils (%) (Auto) 5.1 0.0-7.0 % Basophils (%) (Auto) 0.3 0.0-2.0 % Neutrophils # (Auto) 5.3 1.6-8.6 10 ^3/uL Lymphocytes # (Auto) 1.9 0.4-5.4 10 ^3/uL Monocytes # (Auto) 0.7 0-1.3 10 ^3/uL Eosinophils # (Auto) 0.4 0-0.8 10 ^3/uL Basophils # (Auto) 0 0-0.2 10 ^3/uL Nucleated Red Blood Cells 0.1 % Sodium Level 139 136-145 mmol/L Potassium Level 4.1 3.5-5.1 mmol/L Chloride Level 103 98-107 mmol/L Carbon Dioxide Level 27 20-31 mmol/L Anion Gap 9 5-15 Blood Urea Nitrogen 11 9-23 mg/dL Creatinine 0.79 0.700-1.30 mg/dL Glomerular Filtration Rate Calc 110 >90 mL/min BUN/Creatinine Ratio 13.9 10.0-20.0 Serum Glucose 121 H 74-106 mg/dL Calcium Level 9.1 8.7-10.4 mg/dL Total Bilirubin 0.7 0.2-1.0 mg/dL Aspartate Amino Transferase (AST) 50 H 13-40 U/L Alanine Aminotransferase (ALT) 50 H 7-40 U/L Alkaline Phosphatase 110 46-116 U/L Total Protein 8.0 5.7-8.2 g/dL Albumin 4.1 3.2-4.8 g/dL Triglycerides Level 141 < 150 mg/dL Cholesterol Level 193 < 200 mg/dL LDL Cholesterol 137 H < 100 mg/dL HDL Cholesterol 41 40-59 mg/dL Prothrombin Time 10.9 9.3-11.8 sec Prothrombin Time INR 1.03 0.9-1.15 Activated Partial Thromboplast Time 29.7 24.5-34.5 SEC Troponin I High Sensitivity 671 *H </=54 ng/L Hemoglobin A1c 7.1 H <5.7 % A1C B-Type Natriuretic Peptide 95.37 0-100 pg/mL Test 02/03/25 14:06 Range/Units Urine Color Light-orange Yellow Urine Clarity Clear Clear Urine pH 6.0 5.0-9.0 Urine Specific [place] 1.028 1.001-1.035 Urine Protein Trace H Negative Urine Ketones Negative Negative Urine Blood Negative Negative /uL Urine Nitrite Negative Negative Urine Bilirubin Negative Negative Urine Urobilinogen Normal Negative mg/dL Urine Leukocyte Esterase Negative Negative /uL Urine RBC 1 0 - 3 /hpf Urine Microscopic WBC < 1 0-3 /HPF Urine Squamous Epithelial Cells Few <5 /hpf Urine Bacteria None seen None Seen /hpf Urine Glucose Trace Normal mg/dL Urine Opiates Screen Neg NEGATIVE Urine Fentanyl Screen Neg NEGATIVE Urine Barbiturates Screen Neg NEGATIVE Urine Phencyclidine Screen Neg NEGATIVE Urine Amphetamines Screen Neg NEGATIVE Urine Benzodiazepines Screen Neg NEGATIVE Urine Cocaine Screen Neg NEGATIVE Urine Cannabinoids Screen Neg NEGATIVE Assessment Hypertensive emergency with suboptimal medical therapy NSTEMI, likely type 2 secondary to above Rule out structural heart disease Coronary artery disease status post PTCA including two FARHAT (on ASA but run out a week ago) Pdd-ftgbypp-nykjhhlry diabetes mellitus (HgbA1C 7.1%) Dyslipidemia Nicotine dependence Obesity Plan/Recommendation (Dr. Shen) The patient is cardiac stable and chest pain-free. NSTEMI, likely type 2 secondary to hypertensive emergency. He run out of blood pressure medications approximately a week ago. Continue aggressive blood pressure control as well as single-antiplatelet therapy and lipid lowering agent. Advised to establish care with a primary grease rack worker in the outpatient setting, Mediterranean diet, exercise, and weight loss. In the setting of an unremarkable transthoracic echocardiogram, there is no further cardiac workup indicated at this time. Kindly call with any questions or concerns. Thank you for allowing us to participate in this patient's care. Please call if you have any questions or concerns. This medical document was created using an electronic medical record system with voice recognition software and computerized dictation system. Although this document has been carefully reviewed, there might still be some phonetic and typographical errors. Occasional wrong-word or ``sound-alike substitutions may have occurred due to the inherent limitations of voice recognition software. These areas are purely typographical due to imperfections of the software programs and do not reflect any compromise in the patient's medical care. Please read the chart carefully and recognize, using context, where these substitutions have occurred. Plan discussed with: Patient, Other NYHA Physical activity limitations: NA Date of Service: Feb 04, 2025 Billing Provider: BILL REES Cardiology Common Codes: [id number] INP/OBS CARE (High) KENDALL SHEN MD 02/04/25 1636: Family History: Hypertension G8 MOTHER Allergies: Coded Allergies: No Known Drug Allergy (Verified Allergy, Unknown, 02/01/25) Home Meds Active Scripts Aspirin (Aspirin Low Dose) 81 Mg Tab, 81 MG PO DAILY for 180 Days, #180 TAB Prov:BILL REES 02/04/25 Atorvastatin Calcium (ATORVASTATIN CALCIUM) 20 Mg Tab, 80 MG PO HS for 90 Days, #90 TAB Prov:BILL REES 02/04/25 Erythromycin (Erythromycin) 5 Mg/Gm Oin, 1 MG OP QID for 14 Days, #1 OIN Prov:CRISTAL WASSERMAN MD 02/04/25 Nifedipine (Nifedipine Er) 60 Mg Tab, 1 TAB PO DAILY for 30 Days, #30 TAB Prov:CRISTAL WASSERMAN MD 02/04/25 Irbesartan (IRBESARTAN) 150 Mg Tab, 1 TAB PO DAILY for 30 Days, #30 TAB Prov:CRISTAL WASSERMAN MD 02/04/25 Carvedilol (Carvedilol) 3.125 Mg Tab, 1 TAB PO BID for 30 Days, #60 TAB Prov:CRISTAL WASSERMAN MD 02/04/25 Reported Medications Aspirin (Aspirin Low Dose) 81 Mg Tab, 1 TAB PO DAILY for 30 Days, #30 02/04/25 Atorvastatin Calcium (ATORVASTATIN CALCIUM) 40 Mg Tab, 1 TAB PO DAILY for 30 Days, #30 02/04/25 Metformin Hydrochloride (Metformin Hydrochloride) 500 Mg Tab, 1 TAB PO BID for 30 Days, #60 02/04/25 Plan/Recommendation i cam e to see patient but he was discharged pt seen by STUDENT ACTIVITIES DIRECTOR per STUDENT ACTIVITIES DIRECTOR, no chest pain pt was out of meds , needs rescribe his home meds and not keep missing them in future Plan discussed with: Patient REESBILL ROMANO [facility] Feb 04, 2025 11:55 KENDALL SHEN MD Feb 04, 2025 16:36
[2025-02-04] MEDS ORDERED: CARV3.1240 PO (12:35)
[2025-02-04] MEDS ORDERED: NIFE1TAB30 PO (12:35)
[2025-02-04] MEDS ORDERED: IRBE150T49 PO (12:35)
--- NOTE | 2025-02-04 12:38 | DVHDS2 ---
Discharge Summary Date of Admission Feb 03, 2025 at 16:36 Date of Discharge: Feb 04, 2025 Labs/Diagnostic Data: Laboratory Results Test 02/04/25 11:52 02/04/25 02:41 02/03/25 18:11 02/03/25 14:43 POC Glucose 141 mg/dl (70-106) White Blood Count 8.4 10^3/uL (4.4-10.8) Red Blood Count 5.36 10^6/uL (4.5-5.90) Hemoglobin 14.4 g/dL (13.5-17.5) Hematocrit 42.9 % (41.0-53.0) Mean Corpuscular Volume 79.9 fL (80.0-100.0) Mean Corpuscular Hemoglobin 26.8 pg (28.0-32.0) Mean Corpuscular Hemoglobin Concent 33.5 g/dL (32.0-36.0) Red Cell Distribution Width 15.3 % (11.8-14.3) Platelet Count 209 10^3/uL (140-450) Mean Platelet Volume 9.4 fL (6.9-10.8) Neutrophils (%) (Auto) 63.4 % (37.0-80.0) Lymphocytes (%) (Auto) 23.1 % (10.0-50.0) Monocytes (%) (Auto) 8.1 % (0.0-12.0) Eosinophils (%) (Auto) 5.1 % (0.0-7.0) Basophils (%) (Auto) 0.3 % (0.0-2.0) Neutrophils # (Auto) 5.3 10 ^3/uL (1.6-8.6) Lymphocytes # (Auto) 1.9 10 ^3/uL (0.4-5.4) Monocytes # (Auto) 0.7 10 ^3/uL (0-1.3) Eosinophils # (Auto) 0.4 10 ^3/uL (0-0.8) Basophils # (Auto) 0 10 ^3/uL (0-0.2) Nucleated Red Blood Cells 0.1 % Sodium Level 139 mmol/L (136-145) Potassium Level 4.1 mmol/L (3.5-5.1) Chloride Level 103 mmol/L (98-107) Carbon Dioxide Level 27 mmol/L (20-31) Anion Gap 9 (5-15) Blood Urea Nitrogen 11 mg/dL (9-23) Creatinine 0.79 mg/dL (0.700-1.30) Glomerular Filtration Rate Calc 110 mL/min (>90) BUN/Creatinine Ratio 13.9 (10.0-20.0) Serum Glucose 121 mg/dL (74-106) Calcium Level 9.1 mg/dL (8.7-10.4) Total Bilirubin 0.7 mg/dL (0.2-1.0) Aspartate Amino Transferase (AST) 50 U/L (13-40) Alanine Aminotransferase (ALT) 50 U/L (7-40) Alkaline Phosphatase 110 U/L (46-116) Total Protein 8.0 g/dL (5.7-8.2) Albumin 4.1 g/dL (3.2-4.8) Triglycerides Level 141 mg/dL (< 150) Cholesterol Level 193 mg/dL (< 200) LDL Cholesterol 137 mg/dL (< 100) HDL Cholesterol 41 mg/dL (40-59) Prothrombin Time 10.9 sec (9.3-11.8) Prothrombin Time INR 1.03 (0.9-1.15) Activated Partial Thromboplast Time 29.7 SEC (24.5-34.5) Troponin I High Sensitivity 671 ng/L (</=54) Hemoglobin A1c 7.1 % A1C (<5.7) B-Type Natriuretic Peptide 95.37 pg/mL (0-100) Test 02/03/25 14:06 Urine Color Light-orange (Yellow) Urine Clarity Clear (Clear) Urine pH 6.0 (5.0-9.0) Urine Specific [place] 1.028 (1.001-1.035) Urine Protein Trace (Negative) Urine Ketones Negative (Negative) Urine Blood Negative /uL (Negative) Urine Nitrite Negative (Negative) Urine Bilirubin Negative (Negative) Urine Urobilinogen Normal mg/dL (Negative) Urine Leukocyte Esterase Negative /uL (Negative) Urine RBC 1 /hpf (0 - 3) Urine Microscopic WBC < 1 /HPF (0-3) Urine Squamous Epithelial Cells Few /hpf (<5) Urine Bacteria None seen /hpf (None Seen) Urine Glucose Trace mg/dL (Normal) Urine Opiates Screen Neg (NEGATIVE) Urine Fentanyl Screen Neg (NEGATIVE) Urine Barbiturates Screen Neg (NEGATIVE) Urine Phencyclidine Screen Neg (NEGATIVE) Urine Amphetamines Screen Neg (NEGATIVE) Urine Benzodiazepines Screen Neg (NEGATIVE) Urine Cocaine Screen Neg (NEGATIVE) Urine Cannabinoids Screen Neg (NEGATIVE) Other Laboratory Tests 02/04/25 02:41 Brief Hx & Hospital Course: 49 yo M with hx of htn and obesity admitted for hypertension. Patient reported going to ED because he had right eye pain and redness, found to have corneal abrassion. also found to have htn on 230s and elevation in troponin. pt asymtomatic. seen by cardio, given meds, and wanted to go home as he needs to traegvl. now stable to dc to resume home meds. Condition at Discharge: Stable Final Diagnosis/Problems List corneal abrasion hypertensive urgency type 2 NC demand ischemia Discharge Disposition: Home Discharge Instruct/Medications Diet: Cardiac 2g Na,low cholest Activity: No Restrictions, As Tolerated Follow Up/Referral: PCP cardio Medications: refill for nifedipine, coreg and irbesartan Scheduled Aspirin (Aspirin Low Dose), 1 TAB PO DAILY, (Reported) Atorvastatin Calcium (Atorvastatin Calcium), 1 TAB PO DAILY, (Reported) Carvedilol (Carvedilol), 1 TAB PO BID Irbesartan (Irbesartan), 1 TAB PO DAILY Metformin Hydrochloride (Metformin Hydrochloride), 1 TAB PO BID, (Reported) Nifedipine (Nifedipine Er), 1 TAB PO DAILY Discharge Statement: "Patient was advised to return to the ER or call 911 if any headaches, dizziness, shortness of breath, chest pain, abdominal pain, bleeding, fevers, or worsening of medical condition. Patient was counseled about treatment plan, medications, possible side effects, patientverbalized understanding. All questions were answered to the best of my ability. This discharge took greater then 30 minutes in planning, reviewing documentation, counseling the patient, and discussing with other team members." ASSESSMENT ASSESSMENT Assessment corneal abrasion hypertensive urgency type 2 NC demand ischemia Date of Service: Feb 04, 2025 Billing Provider: CRISTAL WASSERMAN MD Common Visit Codes: 71967-PKY/OBS DISCH DAY >30min CRISTAL WASSERMAN MD Feb 04, 2025 12:38
[2025-02-04] MEDS ORDERED: ERY05OO OP (12:39)
--- NOTE | 2025-02-04 13:04 | DVHSR ---
APPROVED REPORT EXAM: Two-dimensional and M-mode echocardiogram with Doppler and color Doppler. Blood Pressure: 134/84 mmHg INDICATION NSTEMI RISK FACTORS Obesity: Height: 5'9", Weight: 240 DIMENSIONS LVDd 4.7 (3.8-5.7cm) LA (2D) 3.8 (1.9-4.0cm) Aortic Root 3.6 (2.0-3.7cm) LVDs 3.4 (2.5-4.0cm) LA (MM) (1.9-4.0cm) Aortic Cusp Exc 1.9 (1.5-2.0cm) EF (%) 52.0 (55-70%) Rt. Atrium 3.9 (1.9-4.0cm) Asc. Aorta cm IVSd 1.3 (0.7-1.1cm) RV (D) (1.8-2.4cm) PWd 1.4 (0.7-1.1cm) Mitral Valve Mitral Mitral Stenosis E wave 0.80m/s MV Mean GR. mmHg A wave 0.89m/s MV Peak GR. mmHg E/A ratio 0.9 2D MVA cm2 DECEL Time 205ms PRESS 1/2 Time ms Aortic Valve Aortic Valve Aortic Stenosis V1 1.24m/s AO Mean GR. 6mmHg V2 1.62m/s AO Peak GR. 10mmHg LVOT Diameter 2.0 (1.8-2.4cm) Doppler CLARIBEL 2.40cm2 Pulmonic Valve V2 0.98m/s Tricuspid Valve TR Velocity 3.03m/s RVSP 40mmHg Other Information Technically limited study due to body habitus. Conclusion lvef 55% moderate to severe LVH normal rv function normal atria limited study quality no severe valve abnormality noted
[2025-02-04 13:42] VITALS: BP 141/48; PULSE 76; RESP 14; O2SAT 96
[2025-02-04] MEDS ORDERED: ASPI-325 PO (13:55)
[2025-02-04] MEDS ORDERED: ATOR20TA50 PO (13:55)
== END 2025-02-04 13:42 | disposition home or self-care (01) | DRG 199 ==
LOC: ER 13:08 → OVERFLOW 16:36
PROVIDERS: ADMIT Student in an Organized Health Care Education/Training Program; ATTEND Student in an Organized Health Care Education/Training Program
DX: I16.1 Hypertensive emergency (principal); I21.A1 Myocardial infarction type 2; Z79.02 Long term (current) use of antithrombotics/antiplatelets; E11.9 Type 2 diabetes mellitus without complications; E66.9 Obesity, unspecified; I10 Essential (primary) hypertension; S05.01XA Injury of conjunctiva and corneal abrasion without foreign body, right eye, initial encounter; I25.10 Atherosclerotic heart disease of native coronary artery without angina pectoris; Z68.35 Body mass index [BMI] 35.0-35.9, adult; E78.5 Hyperlipidemia, unspecified; F17.210 Nicotine dependence, cigarettes, uncomplicated; F17.290 Nicotine dependence, other tobacco product, uncomplicated; Z79.82 Long term (current) use of aspirin; Z79.84 Long term (current) use of oral hypoglycemic drugs; Z79.899 Other long term (current) drug therapy; Z82.49 Family history of ischemic heart disease and other diseases of the circulatory system; Z95.5 Presence of coronary angioplasty implant and graft; X58.XXXA Exposure to other specified factors, initial encounter; Y93.89 Activity, other specified; Y92.89 Other specified places as the place of occurrence of the external cause; Y99.8 Other external cause status
CPT/HCPCS: 36415; 70450; 71045; 80048; 80053; 80061; 80307; 81001; 82962; 83036; 83880; 84484; 85025; 85610; 85730; 93005; 93306; 96374; 99291; G0378; J1815